=== PATIENT | female | born 1975 | race Caucasian/White ===

== ENCOUNTER 2020-11-13 14:43 | Day surgery (SDC) | payer OTHER ==
[~2020-11-13 14:43] MED LIST: NORCO 5-325 TA1 EACH PO
[2020-11-13 16:32] LABS: BASOPHIL 0.3 % (0-2); HCT 40.8 % (37.0-47.0); HGB 13.5 g/dl (12.5-16.0); LYMPHOCYTE 8.8 % (15-48); MCH 32.4 pg (25.0-31.0); MCHC 33.1 g/dL (32.0-36.0); MCV 97.8 fL (78.0-100.0); MONOCYTE 7.3 % (0-12); MPV 9.3 fL (6.0-9.5); NEUTROPHIL 81.2 % (41-80); NRBC 0; PLT 269 K/uL (150-400); RBC 4.17 M/uL (4.20-5.40); RDW 13.5 % (11.5-14.0); WBC 19.2 K/uL (4.0-10.5)
--- NOTE | 2020-11-13 19:28 | NUR ---
1630 PATIENT ARRIVED TO FLOOR FROM CT DID HEAD TO TOE ASSESSMENT PT WAS AOX4 LUNGS CLEAR HEART RATE REGULAR BUT TACHY, AT 100 BPM. C/O PRESSURE/ TIGHTNESS TO RIGHT SIDE OF FACE AND NECK. VISABLE EDEMA TO RIGHT SIDE OF FACE +1. PEDAL PULSES STRONG, BOWEL SOUNDS PRESENT. PT WAS STABLE WITH VITALS 110/57 HR 100 TEMP 99.1 O2 AT 93% ON RA PT HAD CELLPHONE FACILITY MANAGER PURSE AND GLASSES PT HAS A 20G IN THE LAC SITE WNL. PT RECIEVED 100MCG OF FENTYNL BEFORE ARRIVING TO FLOOR PT WAS PLACES ON CONTINUOUS O2 MONITORING. IT IS REPORTED THAT THE PATIENT WILL GO TO SURGERY AND COME BACK TO FLOOR TO DO THE STAGE 2 OF RECOVERY. PT REPORTS SHE HAS PRESCRIPTIONS THAT SHE IS TO BE SENT HOME WITH. GAVE REPORT TO MARIELA WOODARD, REPORTED ABOUT PLACING POST OP ORDERS ATER PATIENT CAME BACK UP TO THE FLOOR. AND THAT PATIENT MUST BE DISCHARGED BEFORE 0000 11/14/20.
--- NOTE | 2020-11-13 21:28 | NUR ---
PT ARRIVED TO UNIT, 97% O2, B/P IS 99/58 HR IS 103, TEMP IS 98.0
--- NOTE | 2020-11-13 22:12 | NUR ---
PT RESTING IN BED AT THIS TIME, PT IS ALERT AND ORIENTED, VITAL SIGNS STABLE, PT RECEIVING 1 LITER OF OXYGEN AND EATING IE CHIPS, NO REPORTS OF PAIN OR NAUSEA AT THIS TIME. WILL CONTINUE TO MONITOR
--- NOTE | 2020-11-13 23:40 | NUR ---
PT JUST D/C FROM FACILITY, FAMILY DRIVING PT HOME, BELONGINGS WITH PT, PT WAS ABLE TO SUCESSFULLY VOID, ICE/WATER WAS TOLERATED, PT ON ROOM AIR AND VITALS STABLE, DISCHARGE INSTRUCTIONS PROVIDED BY PRINT AND VERBAL, PT STATED SHE UNDERSTOOD ALL INSTRUCTIONS, PT HAD FOLLOW UP APPT MADE WITH PROVIDER DIRECTED
--- NOTE | 2020-11-13 23:42 | NUR ---
VITALS STABLE AT TIME OF D/C B/P 91/54 97% RA 97.5 TEMP 101 HEART RATE
== END 2020-11-13 23:48 | disposition home or self-care (01) ==
LOC: FAS 14:43 → FMS 17:59
PROVIDERS: Oral & Maxillofacial Surgery
DX: K04.7 Periapical abscess without sinus (principal); K12.2 Cellulitis and abscess of mouth; Z20.822 Contact with and (suspected) exposure to COVID-19; Z88.0 Allergy status to penicillin; Z79.899 Other long term (current) drug therapy; J45.909 Unspecified asthma, uncomplicated; F17.200 Nicotine dependence, unspecified, uncomplicated
CPT/HCPCS: 41017; D7210; 36415; 70487; 71046; 84703; 85025; 87070; 87075; 87077; 87205; 93005; J0735; J1100; J1170; J1885; J2250; J2405; J2704; J2710; J3010; J7120; Q9967; U0002